=== PATIENT | male | born 1990 | race Caucasian/White ===

== ENCOUNTER 2018-08-21 13:08 | Emergency (ER) | payer OTHER ==
[~2018-08-21] VITALS: Ht 190.5 cm; Wt 83.5 kg
[2018-08-21 13:19] VITALS: Ht 190.5 cm; Wt 83.5 kg
[2018-08-21 15:37] VITALS: BP 129/81
== END 2018-08-21 15:37 | disposition home or self-care (01) ==
LOC: ED 13:08
DX: J45.909 Unspecified asthma, uncomplicated (principal)
CPT/HCPCS: Q0092